=== PATIENT | female | born 1985 | race African-American/Black ===

== ENCOUNTER → 2022-07-29 | Day surgery (SDC) | payer OTHER | END | disposition home or self-care (01) | LOC: JMAMMO-SUR 10:26 | PROVIDERS: ATTEND Registered Nurse | PROC: 0H9U3ZX Drainage of Left Breast, Percutaneous Approach, Diagnostic (ICD-10-PCS; principal; 2022-07-29) | DX: N60.12 Diffuse cystic mastopathy of left breast (principal) | CPT/HCPCS: 19083; 76642-TC-LT; 77065-TC; 87899; 88305-TC; A4648 ==

== ENCOUNTER 2022-12-31 13:03 | Emergency (ER) | payer OTHER ==
[2022-12-31 13:20] VITALS: BP 155/83; PULSE 96; RESP 17; TEMP 97.8; BMI 21.7
[2022-12-31] MEDS ORDERED: ACETAMINOPHEN 500 MG TABLET (FP) PO ONE (15:45)
[2022-12-31] MEDS ORDERED: ACETAMINOPHEN 325 MG TABLET (FP) ONE (15:48)
== END 2022-12-31 16:54 | disposition home or self-care (01) ==
LOC: JERFT 13:03
DX: M54.31 Sciatica, right side (principal)
CPT/HCPCS: 99283-25